=== PATIENT | male | born 1975 | race Caucasian/White ===

== ENCOUNTER 2023-04-19 10:59 | Outpatient (REF) | payer MEDICAID, SELFPAY ==
[2023-04-19 14:02] LABS: Alanine Aminotransferase 28 U/L (0-40); Albumin Level 4.7 g/dL (3.5-5.0); Alkaline Phosphatase 60 U/L (39-117); Anion Gap 14 (12-20); Aspartate Amino Transferase 25 U/L (5-37); Bilirubin Direct 0.4 mg/dL (0.0-0.5); Bilirubin Total 1.1 mg/dL (0.0-1.0); Blood Urea Nitrogen 16 mg/dL (9-16); Calcium 9.9 mg/dL (8.4-10.2); Carbon Dioxide 30 mmol/L (22-29); Chloride 99 mmol/L (96-108); Cholesterol 175 mg/dL (<200); Estimated Glomerular Filt Rate > 60; Glucose Random 86 mg/dL (60-115); HDL Cholesterol 29 mg/dL (>40); LDL Cholesterol Calculated 121 mg/dL (<100); Potassium 3.5 mmol/L (3.3-5.1); Sodium 139 mmol/L (135-145); Total Protein 8.4 g/dL (6.5-8.0); Triglycerides 127 mg/dL (<150)
== END 2023-04-19 11:00 | disposition home or self-care (01) ==
LOC: HO.HHCL 10:59
PROVIDERS: Visit Provider Student in an Organized Health Care Education/Training Program
DX: Z13.6 Encounter for screening for cardiovascular disorders (principal); J06.9 Acute upper respiratory infection, unspecified
CPT/HCPCS: 36415; 80048; 80061; 80076

== ENCOUNTER 2023-06-23 14:59 | Outpatient (REF) | payer MEDICAID, SELFPAY ==
[2023-06-23 18:03] LABS: MANUAL DIFF FLAG NO
[2023-06-23 18:09] LABS: Basophils Absolute Auto 0.1 X10*3/uL (0.0-0.2); Basophils Percent Auto 0.7 % (0-2); Eosinophils Absolute Auto 0.1 X10*3/uL (0.0-0.4); Eosinophils Percent Auto 0.9 % (0-4); Hematocrit 43.5 % (42.0-52.0); Imm Gran Abs Auto 0.01 X10*3/uL (0.00-0.03); Imm Gran Pct Auto 0.1 % (0.0-0.4); Lymphocytes Absolute Auto 1.8 X10*3/uL (1.2-4.9); Lymphocytes Percent Auto 26.3 % (20-40); Mean Corpuscular HGB Conc 34.5 g/dl (31.0-36.0); Mean Corpuscular Hemoglobin 30.2 pg (27.0-33.0); Mean Corpuscular Volume 87.7 fL (80.0-98.0); Mean Platelet Volume 10.2 fL (9.4-12.4); Monocytes Absolute Auto 0.7 X10*3/uL (0.1-1.2); Monocytes Percent Auto 10.9 % (2-11); Neutrophils Absolute Auto 4.1 x10*3/uL (2.0-8.3); Neutrophils Percent Auto 61.1 % (45-73); Platelet Count 285 X10*3/uL (160-400); Red Blood Count 4.96 X10*6/uL (4.60-5.80); Red Cell Distribution Width 12.8 % (11.0-16.0); White Blood Count 6.7 X10*3/uL (4.8-10.8)
[2023-06-23 18:18] LABS: Alanine Aminotransferase 20 U/L (0-40); Albumin Level 4.4 g/dL (3.5-5.0); Alkaline Phosphatase 60 U/L (39-117); Anion Gap 12 (12-20); Aspartate Amino Transferase 19 U/L (5-37); Bilirubin Total 0.5 mg/dL (0.0-1.0); Blood Urea Nitrogen 13 mg/dL (9-16); Carbon Dioxide 26 mmol/L (22-29); Chloride 104 mmol/L (96-108); Estimated Glomerular Filt Rate > 60; Glucose Random 99 mg/dL (60-115); Potassium 3.4 mmol/L (3.3-5.1); Sodium 139 mmol/L (135-145); Total Protein 7.9 g/dL (6.5-8.0)
[2023-06-24 09:07] LABS: HBsAGNum1 0.25 S/CO (0.00-0.99); Hepatitis B Surface Antigen Negative (Negative)
[2023-06-24 09:10] LABS: HBS Num1 0.21 mIU/mL (0-7.99); HBc Num1 0.25 S/CO (0.00-0.79); HIV AB/AG Nonreactive (Nonreactive); HIV Num 1 0.04 S/CO (0.00-0.99); Hepatitis B Core Antibody Nonreactive (Nonreactive); ~HepC Num1 0.22 S/CO (0.00-0.79); ~Hepatitis B Surface Antibody NONREACTIVE (Nonreactive); ~Hepatitis C Antibody Nonreactive (Nonreactive)
== END 2023-06-23 15:00 | disposition home or self-care (01) ==
LOC: HO.CHCLDS 14:59
PROVIDERS: Visit Provider Family Medicine
DX: I10 Essential (primary) hypertension (principal); Z13.9 Encounter for screening, unspecified
CPT/HCPCS: 36415; 80053; 85025; 86704; 86706; 86803; 87340; 87389

== ENCOUNTER 2023-09-03 11:02 | Outpatient (REF) | payer MEDICAID, SELFPAY ==
--- NOTE | ~2023-09-03 | MR_ITS ---
EXAMINATION: MR CERVICAL SPINE WITHOUT CONTRAST CLINICAL INFORMATION: Right-sided neck pain and arm numbness and tingling COMPARISON: None available. TECHNIQUE: MRI of the cervical spine was obtained using routine sequences without contrast. FINDINGS: The visualized posterior fossa is unremarkable. Straightening of the normal cervical lordosis. No listhesis. No acute bone marrow abnormality. The vertebral body heights are preserved. Multilevel disc desiccation with moderate disc height loss at C7-T1. The visualized spinal cord is normal in caliber. No abnormal cord signal. C2-C3: Mild endplate spurring and bilateral facet arthrosis. No significant spinal canal or foraminal narrowing. C3-4: Disc osteophyte complex, bilateral uncovertebral hypertrophy, bilateral facet arthrosis. Severe right greater than left neural foraminal narrowing. No significant spinal canal stenosis. C4-5: Disc osteophyte complex, bilateral uncovertebral hypertrophy, bilateral facet arthrosis. Severe right and mild left neural foraminal narrowing. No significant spinal canal stenosis. C5-6: Disc osteophyte complex, bilateral uncovertebral hypertrophy, bilateral facet arthrosis. Severe bilateral neural foraminal narrowing. No significant spinal canal stenosis. C6-7: Disc osteophyte complexes superimposed left subarticular disc protrusion. There is severe stenosis of the left lateral recess without significant spinal canal stenosis. Severe left greater than right neural foraminal narrowing. C7-T1: Disc osteophyte complex, bilateral uncovertebral hypertrophy, bilateral facet arthrosis. Mild spinal canal stenosis. Severe bilateral neural foraminal narrowing. T1-T2: Diffuse disc bulge and bilateral facet arthrosis. Mild spinal canal stenosis. Severe bilateral neural foraminal narrowing. The paravertebral soft tissues are unremarkable. The imaged lung apices are clear. MR/MR cervical spine wo con IMPRESSION: At C6-C7, there is severe lateral recess stenosis related to a left subarticular disc protrusion. At C7-T1 and T1-T2, there is mild spinal canal stenosis and severe bilateral neural foraminal narrowing. At C4-C5, there is severe right and mild left neural foraminal narrowing. At C3-C4, there is severe right greater than left neural foraminal narrowing. Electronically signed by: Ira Fowler MD 10/03/2023 06:48 PM EDT
== END 2023-09-03 11:03 | disposition home or self-care (01) ==
LOC: HO.MRI 11:02
PROVIDERS: PCP Family Medicine; Visit Provider Internal Medicine
DX: M54.2 Cervicalgia (principal)
CPT/HCPCS: 72141

== ENCOUNTER 2023-09-06 07:39 | Outpatient (REF) | payer MEDICAID, SELFPAY ==
--- NOTE | ~2023-09-06 | XR_ITS ---
EXAMINATION: XR ELBOW, RIGHT CLINICAL INFORMATION: Right lateral elbow pain. COMPARISON: None available. TECHNIQUE: AP, lateral, and oblique views of the right elbow. FINDINGS: There is increased osseous density adjacent to the medial upper condyle. There is a small spur extending off the lateral upper condyle. Bone and joints are otherwise unremarkable. No effusion. No fracture. No degenerative change. XR/XR elbow RT min 3V IMPRESSION: 1. Increased osseous density adjacent to the medial epicondyle. This likely reflects spur/enthesophyte. 2. Small spur/enthesophyte extending off the lateral epicondyle.
== END 2023-09-06 07:40 | disposition home or self-care (01) ==
LOC: HO.XRAY 07:39
PROVIDERS: PCP Family Medicine; Visit Provider Family Medicine
DX: M25.521 Pain in right elbow (principal)
CPT/HCPCS: 73080

== ENCOUNTER 2023-10-12 14:16 | Outpatient (AMB) | payer MEDICAID, SELFPAY ==
--- NOTE | 2023-10-12 14:17 | A.OFFVIS_ITS ---
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 Patient reports that he has had ongoing pain of the right elbow for about 2 month, pain is felt on the lateral aspect of the elbow. 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 Patient reports that hel woke up and had a pinched nerve in the neck, the pain was radiating from the neck to the elbow. His neck has since improved but he continues to have pain of the elbow, and limited function of the right hand. He has numbness and tingling of the ulnar aspect of the forearm and the 3rd,4th and 5th digits. He reports that he has had previous neck issues and had previous MRI, he does have an appointment with Spine next week. He would like to avoid surgical intervention, we discussed possible referral to physiarty Allergies No Known Allergies Allergy (Verified 10/12/23 14:44) HPI HPI ACCOUNT ANALYST-Right elbow pain: Details: Patient is a 48-year-old male who presents for evaluation of right elbow pain, that shoots from the right side of the neck down through the shoulder and elbow all the way to the forearm wrist and hand. The patient reports that he also has numbness and tingling in the right ring and small fingers that is constant, daily, worse at night. The patient reports that he does have a history significant for some cervical spine issues, such as a herniated disc, and states that he does have an appointment with spine in 1-2 weeks for assessment of this. The patient reports that this pain and numbness has been ongoing for approximately 2 months. Patient also reports that he has limited function in his right hand due to this, and states that he is weaker and has limited range of motion. Patient Also reports that he does experience pain in both the medial and lateral epicondyles of the elbow with lifting or range of motion. No other acute complaints or concerns at this time. [facility] Social History (Updated 10/12/23 @ 14:45 by Gloria Nelson CMA) Current occupational status: unemployed Review of Systems Const All systems reviewed & are unremarkable except as noted in HPI and below Physical Exam Vital Signs: BMI result Body Mass Index 33.2 Extrem Other: Patient is alert, oriented, and in no acute distress. Neuro: Patient reports diminished sensation to the small finger, ring finger, and the ulnar aspect of the middle finger of the left hand No visual evidence of thenar or intrinsic wasting Patient is unable to adduct the right small finger fully Patient is not able to cross the right middle finger over the index finger Good APB muscle belly firing Vascular: Cap refill brisk Pain: Patient reports tenderness to palpation of both the medial and lateral epicondyles of the right elbow No tenderness to palpation about right hand or wrist ROM: With encouragement, the patient is able to make a closed fist and extend the digits of the right hand fully Patient is able to extend the right elbow to 0 degrees and flex to approximately 140 degrees without difficulty Skin: No lacerations or abrasions. General: No ecchymosis, erythema, or evidence of infection. Positive Cozen's test on the right Positive reverse Cozen's test on the right Psych: Appears grossly normal Affect normal Attitude cooperative Assessment & Plan Assessment & Plan (1) Lateral epicondylitis of right elbow: Code(s): M77.11 - Lateral epicondylitis, right elbow Category: Medical (2) Medial epicondylitis of right elbow: Code(s): M77.01 - Medial epicondylitis, right elbow Category: Medical (3) Numbness and tingling of right hand: Code(s): R20.0 - Anesthesia of skin; R20.2 - Paresthesia of skin Category: Medical Plan 1. numbness and tingling of the ulnar nerve distribution of the right hand Symptoms constant, daily, worse at night Patient does not have a nerve conduction study on file Therefore, patient is referred for a nerve conduction study to assess the health of the nerves of the right upper extremity, as well as to attempt to differentiate if the neuropathy is from the cubital tunnel or potentially higher in the cervical spine. Patient will follow-up in our office after nerve conduction study for results review and discussion of further treatment options Patient is amenable to this plan 2. Medial epicondylitis of right elbow 3. lateral epicondylitis of right elbow At this time, patient is referred to occupational therapy for treatment of both medial and lateral epicondylitis of the right elbow Patient is informed that if in approximately 8 weeks after starting occupational therapy, he notices no relief or worsening of symptoms, he should call to make another appointment with our office to discuss further treatment options, includ ing but not limited to injections Patient is amenable to this plan Patient will follow-up as needed with any acute concerns Orders: Orders NE nerve conduction velocity 10/12/23 R20.0 - Anesthesia of skin, R20.2 - Paresthesia of skin NE electromyogram (EMG) 10/12/23 R20.0 - Anesthesia of skin, R20.2 - Paresthesia of skin OT Evaluation and Treatment 10/12/23 M77.01 - Medial epicondylitis, right elbow, M77.11 - Lateral epicondylitis, right elbow Coding Level of Care Code New Pt Level 3 (02908) Diagnoses Lateral epicondylitis of right elbow M77.11 Medial epicondylitis of right elbow M77.01 Numbness and tingling of right hand R20.0; R20.2
[2023-10-12 14:46] VITALS: BMI 33.2
== END 2023-10-12 15:10 | disposition home or self-care (01) ==
PROVIDERS: PCP Family Medicine
DX: M77.11 Lateral epicondylitis, right elbow (principal); M77.01 Medial epicondylitis, right elbow; R20.0 Anesthesia of skin; R20.2 Paresthesia of skin
CPT/HCPCS: 99203

== ENCOUNTER → 2023-10-12 14:16 | Outpatient (BNVA) | payer MEDICAID, SELFPAY | PROVIDERS: PCP Family Medicine | DX: M77.11 Lateral epicondylitis, right elbow (principal); M77.01 Medial epicondylitis, right elbow; R20.0 Anesthesia of skin; R20.2 Paresthesia of skin | CPT/HCPCS: 99212 ==

== ENCOUNTER 2023-10-17 10:52 | Outpatient (AMB) | payer MEDICAID, SELFPAY ==
--- NOTE | 2023-10-17 11:19 | HO.SPINEOV ---
Intake Visit Reasons: Back pain Intake Note: Mr. Drew is here today c/o back pain. Hand Winder Required: No Allergies No Known Allergies Allergy (Verified 10/12/23 14:44) Assessment & Plan Assessment & Plan (1) Numbness and tingling of right hand: Code(s): R20.0 - Anesthesia of skin; R20.2 - Paresthesia of skin Category: Medical Plan Dear Dr Rae, Thank you for referring Mr Drew to our office today. He is a very nice 48-year-old gentleman who presents to the office today for evaluation of tingling and numbness from his elbow down into his medial forearm into his 4th and 5th digits with associated strength loss. His issues began about 2 months ago when he awoke 1 morning and had pain in his neck radiating down his arm. That eventually subsided, but what he has been left with is a tingling and numbness with strength loss as mentioned in the hand. Specifically grabbing things, holding heavy objects or opening a jar etc.. He underwent a cervical MRI showing multilevel degenerative changes at C6-7, C7-T1 with foraminal narrowing amongst other degenerative changes. A he did see Ralph AGOSTO in the hand center just last week and was diagnosed with possible epicondylitis. A nerve conduction test was ordered. He is seeing us today to consider if this could be something coming from the cervical spine. Currently he has no arm pain. The main symptom is the numbness in the hand strength loss. PMH: Hypertension, GERD with Gil's esophagitis but otherwise healthy, no previous surgeries. Social hx: He does not smoke cigarettes, but does smoke marijuana daily, occasionally uses alcohol Medications: Pantoprazole, baby aspirin, amlodipine, hydrochlorothiazide Allergies: None Physical exam: Sensory loss in an ulnar/C8 distribution of the right hand with 4-5 strength loss in the interosseous and lumbrical muscle groups on the right side. Strength in the rest of his right arm is 5/5. Reflexes are normal in the upper extremities. Gait is normal. Positive Tinel sign in the right elbow. Imaging review: Cervical MRI done at [facility] reveals multilevel degenerative disc disease, he has a moderate to large size left C6-7 disc herniation compressing the left C7 nerve root. He has bilateral neuroforaminal stenosis at C7-T1 compressing the bilateral C8 nerve roots. There other more mild degenerative changes seen on the MRI. Impression: 48 year old gentleman presents to the office today for evaluation of tingling and numbness from his elbow down into his medial forearm in his 4th and 5th digits. He also has associated weakness of his finger intrinsic muscle groups. Positive Tinel sign on his exam. His initial presentation was suggests a radiculopathy coming from the C8 nerve root given the amount of pain that he was in initially, but the pain has resolved and he is left with a numbness from the elbow down and the weakness of the hand. What we could be dealing with here is a nerve injury from the compression at the C8 nerve root in the foramen at C7-T1 versus an ulnar neuropathy/cubital tunnel syndrome. An EMG was ordered by the hand surgery team. That seems very appropriate for this situation and we will await the results to see if this is coming from his neck or if it has a peripheral nerve issue. The good news is that the hand weakness seems to be ever so slowly resolving on its own according to the patient but it is certainly not back to normal yet. Thank you for allowing us to care for your patient. The total time spent with this visit with this patient was 45 minutes reviewing history, physical exam, service imaging review, and implementation of treatment plan or further diagnostic testing Ben Bojorquez MD,PhD [facility] Coding Level of Care Code New Pt Level 4 (69180) Diagnoses Numbness and tingling of right hand R20.0; R20.2
== END 2023-10-17 12:10 | disposition home or self-care (01) ==
PROVIDERS: PCP Family Medicine; Referring Provider Family Medicine; Visit Provider Physician Assistant
DX: R20.0 Anesthesia of skin (principal); R20.2 Paresthesia of skin
CPT/HCPCS: 99204

== ENCOUNTER → 2023-10-17 10:52 | Outpatient (BNVA) | payer MEDICAID, SELFPAY | PROVIDERS: PCP Family Medicine; Visit Provider Physician Assistant | DX: R20.0 Anesthesia of skin (principal); R20.2 Paresthesia of skin | CPT/HCPCS: 99212 ==

== ENCOUNTER 2023-11-11 15:20 | Outpatient (REF) | payer MEDICAID, SELFPAY ==
--- NOTE | 2023-11-11 15:23 | EMG_ITS ---
Chief complaint: Woke up in August with right-sided neck pain radiating to elbow and hand, with numbness on 4th and 5th digits. Symptoms have improved since but continues to have weakness on right hand. Noted weakness of intrinsic hand muscles, specifically finger abduction. There is also atrophy of right FDI muscle. Reason for referral: Evaluate for ulnar neuropathy versus radiculopathy Referred by: Ralph AGOSTO Procedure done: Right upper extremity NCS/EMG Precautions and/or limitations: None The limb temperature was monitored continuously and remained between 32-36 degrees C during the performance of the NCS. Ulnar motor NCS was performed with moderate elbow flexion between 70-90 degrees, with across-elbow distance of 10 cm. Nerve Conduction Studies Anti Sensory Summary Table ?Stim Site NR Onset (ms) Norm Onset (ms) Peak (ms) Norm Peak (ms) O-P Amp (?V) Norm O-P Amp Site1 Site2 Delta-0 (ms) Dist (cm) Jeevan (m/s) Norm Jeevan (m/s) Right Median Anti Sensory (2nd Digit) Wrist ? 2.9 3.6 <3.6 11.6 >10 Wrist 2nd Digit 2.9 14.0 48 Right Radial Anti Sensory (Thumb) Forearm ? 0.9 1.8 <3.1 19.0 Forearm Thumb 0.9 0.0 Right Ulnar Anti Sensory (5th Digit) Wrist ? 0.9 2.8 <3.7 22.2 >15.0 Wrist 5th Digit 0.9 14.0 156 Motor Summary Table ?Stim Site NR Onset (ms) Norm Onset (ms) O-P Amp (mV) Norm O-P Amp iAmp (mV) Amp (1st) (%) Site1 Site2 Delta-0 (ms) Dist (cm) Jeevan (m/s) Norm Jeevan (m/s) Right Median Motor (Abd Poll Brev) Wrist ? 4.5 <3.9 3.4 >4.5 4.6 100.0 Elbow Wrist 4.5 24.5 54 >45 Elbow ? 9.0 3.3 4.6 97.1 Right Ulnar Motor (Abd Dig Minimi) Wrist ? 4.2 <3.0 0.5 >5 0.4 100.0 B Elbow Wrist 3.4 22.0 65 >45 B Elbow ? 7.6 0.5 0.4 100.0 A Elbow B Elbow 1.6 10.0 63 >45 A Elbow ? 9.2 0.5 0.5 100.0 EMG ?Side Muscle Nerve Root Ins Act Fibs Psw Amp Dur Poly Recrt Int Pat Comment Right 1stDorInt Ulnar C8-T1 Incr 1+ 1+ Nml Nml 0 Reduced Complete Right FlexCarRad Median C6-7 Nml Nml Nml Nml Nml 0 Nml Complete Right Biceps Musculocut C5-6 Nml Nml Nml Nml Nml 0 Nml Complete Right Triceps Radial C6-7-8 Nml Nml Nml Nml Nml 0 Reduced Complete Right Deltoid Axillary C5-6 Nml Nml Nml Nml Nml 0 Nml Complete Paraspinal EMG ?Side Muscle Nerve Root Ins Act Fibs Psw Comment Right Cervical Upper Rami Nml Nml Nml Right Cervical Mid Rami Nml Nml Nml Right Cervical Lower Rami Incr 1+ 1+ FINDINGS: Right median motor nerve showed prolonged distal latency, small amplitude and normal conduction velocity. Right ulnar motor nerve showed prolonged distal latency, very small amplitudes and normal conduction velocity. No conduction block across the elbow. Median and ulnar sensory nerves within normal. Radial sensory nerve within normal. Concentric needle EMG was performed in selected muscles of the right upper extremity and cervical paraspinals. Study revealed signs of electric abnormalities as shown in the table above. Right triceps showed reduced recruitment. Right FDI showed increased insertional activity, PSWs, fibrillations, and reduced recruitment. Right lower cervical paraspinals showed increased insertional activity, PSWs and fibrillations. IMPRESSION: 1. This is an abnormal study. 2. There is electrodiagnostic evidence for right C8 acute radiculopathy. 3. There is no electrodiagnostic evidence for median neuropathy, ulnar neuropathy, or brachial plexopathy. Thank you for your kind referral. Gissel Erwin MD, MARISSA Board Certified, [place] Board of Physical Medicine and Rehabilitation (ABPMR) Board Certified, [place] Board of Electrodiagnostic Medicine (ABEM) [place] [id number] [facility]
== END 2023-11-11 15:21 | disposition home or self-care (01) ==
LOC: HO.NEURO 15:20
PROVIDERS: PCP Family Medicine
DX: R20.0 Anesthesia of skin (principal); R20.2 Paresthesia of skin
CPT/HCPCS: 95886; 95909

== ENCOUNTER → 2023-11-11 15:23 | Outpatient (BNV) | payer MEDICAID, SELFPAY | PROVIDERS: PCP Family Medicine; Visit Provider Physical Medicine & Rehabilitation | DX: M54.12 Radiculopathy, cervical region (principal) | CPT/HCPCS: 95886; 95909 ==

== ENCOUNTER 2023-11-29 03:28 | Emergency (ER) | payer MEDICAID, SELFPAY ==
[2023-11-29 03:39] VITALS: BP 139/88; PULSE 63; RESP 16; TEMP 36.5; O2SAT 96; BMI 32.5
[2023-11-29 04:00] VITALS: BP 149/87; PULSE 65; RESP 20; TEMP 36.3; O2SAT 96
[2023-11-29] MEDS: Ibuprofen 600 MG TABLET PO (04:43)
[2023-11-29 06:20] VITALS: BP 138/80; PULSE 60; RESP 17; TEMP 37; O2SAT 95
--- NOTE | 2023-11-29 06:56 | ED.DENTAL ---
HPI - Dental/Oral General Chief complaint: Dental/Oral Stated complaint: SOB, mouth infection Time Seen by Provider: 11/29/23 06:31 Source: patient Mode of arrival: ambulatory Limitations: no limitations History of Present Illness ED Provider: Reny Damon PA-C HPI Narrative: 48 yo male presents to the ER for evaluation of front lower dental pain and swelling that started 2-3 days ago. He reports a history of multiple extractions in the past and has upper dentures. He has an appointment on 12/12 to remove what is left of the lower teeth. He reports one of his front lower left teeth is broken and it started getting very painful and swollen 2-3 days ago. Pain with chewing, hot and cold. Minimal relief w/ tyelnol. no neck swelling. no fevers. MD Complaint: tooth pain Location: Tooth # (27) Onset (ago): day(s) Duration: constant Severity: severe Relieving factors: NSAIDs Exacerbating factors: chewing, cold and heat Context: history of dental caries and poor dental care Associated symptoms: gum swelling Treatment prior to arrival: oral analgesic Related Data Home Medications ?Medication ?Instructions ?Recorded ?Confirmed amlodipine 10 mg tablet 10 mg PO QAM 10/12/23 aspirin 81 mg tablet,delayed 81 mg PO QAM 10/12/23 release hydrochlorothiazide 25 mg tablet 25 mg PO QAM 10/12/23 pantoprazole 20 mg tablet,delayed 20 mg PO QAM 10/12/23 release Previous Rx's ?Medication ?Instructions ?Recorded amoxicillin 875 mg-potassium 1 tab PO BID #20 tabs 11/29/23 clavulanate 125 mg tablet chlorhexidine gluconate 0.12 % 15 ml buccal BID #473 mL 11/29/23 mouthwash (Peridex) ibuprofen 600 mg tablet 600 mg PO Q8H PRN fever or pain 11/29/23 #14 tabs tramadol 50 mg tablet 50 mg PO Q8H PRN severe pain 11/29/23 (scale score 7-10) #6 tabs Allergies Allergy/AdvReac Type Severity Reaction Status Date / Time No Known Allergies Allergy Verified 11/29/23 03:40 Review of Systems Review of Systems: Yes all other systems are reviewed and are negative PMFSH Social History Social History (Updated 10/12/23 @ 14:45 by Gloria Nelson [facility]) Smoked in Last 30 Days: No Substance Use Type: Marijuana Advance Directives: No Advance Directives Information Provided: No Do you have a plan to hurt others: No Plan Current occupational status: unemployed Physical Exam Vital Signs: Vital Signs: Last Vital Signs Temp 98.7 F 11/29/23 07:14 Pulse 60 11/29/23 07:14 Resp 17 11/29/23 07:14 BP 138/80 11/29/23 07:14 Pulse Ox 95 11/29/23 07:14 O2 Del Method Room Air 11/29/23 06:20 BMI result Body Mass Index 32.5 Appearance: Alert. Oriented X3. No acute distress. Head: normocephalic, atraumatic. Eyes: Pupils equal, round and reactive to light. ENT: Pharynx normal. No tonsillar swelling or exudate. Dental: upper dentures in place. lower molars missing bilaterally with normal appearing gingiva. left lower incisor is broken, tender w/ associated gingival erythema, tenderness and swelling. no fluctuance. no trismus Neck: Normal inspection. Neck supple. No anterior neck swelling CVS: Normal heart rate and rhythm. Pulses normal. Respiratory: No respiratory distress. Breath sounds normal. Abdomen: Soft and nontender. +BS x4 Skin: Skin warm and dry. Normal skin color. Normal skin turgor. No rashes. Extremities: No lower extremity edema. No joint swelling. Neuro/psych: Oriented X 3. grossly normal, nonfocal. CN II-XII intact. Normal speech and cognition. Medications Administered Discontinued Medications Generic Name Dose Route Start Last Admin Trade Name Freq PRN Reason Stop Dose Admin Amoxicillin/Clavulanate Potassium 875 mg 11/29/23 06:54 11/29/23 07:11 Amoxicillin/Potassium Clav 875 Mg Tablet PO 11/29/23 06:55 875 mg ONCE ONE Administration Ibuprofen 600 mg 11/29/23 04:41 11/29/23 04:43 Ibuprofen 600 Mg Tablet PO 11/29/23 04:42 600 mg ONCE ONE Administration Medical Decision Making Medical Decision Making [facility] Narrative: 40-year-old male presents to the ER for evaluation of lower, frontal dental pain and swelling. He has a broken tooth that is infected. It appears he has an abscess. There is no drainable window, area of fluctuance to intervene on today. Will start him on antibiotics and pain control. He has a dentist appointment in a week and a half. Was given strict return precautions and is stable for [place] home Differential Diagnosis Differential Diagnoses: The differential diagnosis associated with the presentation includes toothache, dental trauma, dental absess, bryce's angina External Record Review External record reviewed: Prior outpatient labs Tests considered The following testing was considered but not selected: Considered CT scan of the facial bones/soft tissues of the neck to assess for involvement in the submental tissues however this was not present on examination today Prescription Management I considered prescription management with: Pain Medication and Antibiotic Critical Care Time Critical Care Time Critical Care Time: No Discharge Plan Discharge Clinical Impression: Dental abscess Patient Disposition: Home, Self-Care Instructions: Dental Abscess (ED) Additional Instructions: Take the prescribed antibiotics as directed, complete the entire course and do not miss any doses Take Tylenol 1000 mg every 6 hours alternating with Ibuprofen (take with food) Take the presribed tramadol as needed for severe pain only. do not drive after taking this medication Follow up with your dentist as soon as possible. If you develop new or worsening symptoms call 911 or come back to the ER for further evaluation. Prescriptions: New amoxicillin-pot clavulanate 875-125 mg tablet 1 tab PO BID Qty: 20 0RF ibuprofen 600 mg tablet 600 mg PO Q8H PRN (Reason: fever or pain) Qty: 14 0RF tramadol 50 mg tablet 50 mg PO Q8H PRN (Reason: severe pain (scale score 7-10)) Qty: 6 0RF chlorhexidine gluconate [Peridex] 0.12 % mouthwash 15 ml buccal BID Qty: 473 0RF No Action hydrochlorothiazide 25 mg tablet 25 mg PO QAM amlodipine 10 mg tablet 10 mg PO QAM pantoprazole 20 mg tablet,delayed release (DR/EC) 20 mg PO QAM aspirin 81 mg tablet,delayed release (DR/EC) 81 mg PO QAM Referrals: Quynh Rae MD [Primary Care Provider] - Interventions: ED Discharge Assessment Last Done: 11/29/23 07:14 Discharge Date/Time: 11/29/23 07:15 Print Language: Italian
[2023-11-29] MEDS: Amoxicillin/Potassium Clav 875 MG TABLET PO (07:11)
[2023-11-29 07:14] VITALS: BP 138/80; PULSE 60; RESP 17; TEMP 37.1; O2SAT 95
== END 2023-11-29 07:15 | disposition home or self-care (01) ==
PROVIDERS: Emergency Provider Emergency Medicine; PCP Family Medicine
DX: K04.7 Periapical abscess without sinus (principal); R06.02 Shortness of breath; K03.81 Cracked tooth
CPT/HCPCS: 99283; 99284

== ENCOUNTER 2023-12-05 15:12 | Outpatient (AMB) | payer MEDICAID, SELFPAY ==
--- NOTE | 2023-12-05 15:15 | MHC.OFFVIS ---
Vital Signs 12/05/23 15:17 Height 6 ft 1 in Weight 240 lb BMI 31.7 Handedness Right Intake Visit Reasons: OV - EMG review Intake Note: Raul is a 48 year old right hand dominant male who presents today for a review of his EMG for his right upper extremity conducted on 11/11/2023. Patient is open to discussing treatment options. Allergies No Known Allergies Allergy (Verified 12/05/23 15:17) HPI HPI OV - EMG review: Details: Patient is a 48-year-old male who presents for right hand EMG review. The patient states that his symptoms have improved significantly since previous evaluation, and then he feels that the strength is returning to his right hand, as well as decreases in the intensity and frequency of the numbness and tingling of the right hand. Patient does state however that he is still open to any potential treatment options available to him. No other acute complaints or concerns at this time. [facility] Social History Alcohol intake: current Alcohol intake frequency: holidays/special occasions only e-Cigarette/Vaping Use: Currently Using Substance Use Type: Marijuana Current occupational status: unemployed Physical Exam Vital Signs: BMI result Body Mass Index 31.7 Extrem Other: Patient is alert, oriented, and in no acute distress. Neuro: Patient reports diminished sensation to the small finger, ring finger, and the ulnar aspect of the middle finger of the left hand No visual evidence of thenar or intrinsic wasting Patient is unable to adduct the right small finger fully, but improved since last visit Patient is not able to cross the right middle finger over the index finger Good APB muscle belly firing Vascular: Cap refill brisk Pain: Patient reports tenderness to palpation of both the medial and lateral epicondyles of the right elbow No tenderness to palpation about right hand or wrist ROM: With encouragement, the patient is able to make a closed fist and extend the digits of the right hand fully Patient is able to extend the right elbow to 0 degrees and flex to approximately 140 degrees without difficulty Skin: No lacerations or abrasions. Psych: Appears grossly normal Affect normal Attitude cooperative Results Reviewed Results Reviewed: MPRESSION: 1. This is an abnormal study. 2. There is electrodiagnostic evidence for right C8 acute radiculopathy. 3. There is no electrodiagnostic evidence for median neuropathy, ulnar neuropathy, or brachial plexopathy. Thank you for your kind referral. Gissel Erwin MD, MARISSA Assessment & Plan Assessment & Plan (1) Cervical radiculopathy at C8: Code(s): M54.12 - Radiculopathy, cervical region Category: Medical Plan 1. 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
[2023-12-05 15:17] VITALS: BMI 31.7
== END 2023-12-05 15:37 | disposition home or self-care (01) ==
LOC: HO.HOS 15:12
PROVIDERS: PCP Family Medicine
DX: M54.12 Radiculopathy, cervical region (principal)
CPT/HCPCS: 99213

== ENCOUNTER → 2023-12-05 15:12 | Outpatient (BNVA) | payer MEDICAID, SELFPAY | PROVIDERS: PCP Family Medicine | DX: M54.12 Radiculopathy, cervical region (principal) | CPT/HCPCS: 99212 ==

== ENCOUNTER 2023-12-08 14:56 | Outpatient (AMB) | payer MEDICAID, SELFPAY ==
--- NOTE | 2023-12-08 15:35 | A.SPINEOV_ITS ---
Intake Visit Reasons: pt had EMG 11/10 and will like to review with you Intake Note: Mr. Drew is here to F/u on EMG results. Branch Service Representative Required: No Allergies No Known Allergies Allergy (Verified 12/05/23 15:17) Assessment & Plan Assessment & Plan (1) Cervical radiculopathy at C8: Code(s): M54.12 - Radiculopathy, cervical region Category: Medical Plan Mr Drew came back in today to discuss his EMG. His pain in his arm is gone, the numbness seems to be going away as well however the hand weakness remains. His EMG showed a C8 radiculopathy which we expected. It does not show cubital tunnel syndrome. We discussed the fact that with or without surgery, the hand weakness is likely something that is going to be present for some time it may even be permanent, therefore Dr. Bojorquez generally does not elected to do surgery on these patients. I gave him a referral to OT so they could work with him. He will contact us down the road if something changes. Total amount of time spent in this visit was 20 minutes in discussion of symptoms, EMG results and subsequent plan of care Ben Bojorquez MD,PhD [facility] Orders: Orders OT Evaluation and Treatment Today M54.12 - Radiculopathy, cervical region Coding Level of Care Code Est Pt Level 3 (41487) Diagnoses Cervical radiculopathy at C8 M54.12
== END 2023-12-08 15:58 | disposition home or self-care (01) ==
LOC: HO.HNS 14:56
PROVIDERS: PCP Family Medicine; Visit Provider Physician Assistant
DX: M54.12 Radiculopathy, cervical region (principal)
CPT/HCPCS: 99213

== ENCOUNTER → 2023-12-08 14:56 | Outpatient (BNVA) | payer MEDICAID, SELFPAY | PROVIDERS: PCP Family Medicine; Visit Provider Physician Assistant | DX: M54.12 Radiculopathy, cervical region (principal) | CPT/HCPCS: 99212 ==

== ENCOUNTER 2024-12-10 09:36 | Outpatient (REF) | payer MEDICAID, SELFPAY ==
--- OUTSIDE RECORDS SUMMARY | 2024-12-10 11:00 | XMS_ITS | Patient Health Record ---
Author Organization [facility] Address [address] [place] [address] Care Team Providers Care Regulatory Submissions Associate Name Role Phone LEVON VAUGHN, DR RIVAS Primary Care Provider Margarita Concepcion Unavailable [phone] NO REFERRING, PROVIDER Unavailable Unavailab le Allergies No Known Allergies Reason For Referral No Information Medications Medication SIG (Take, Route, Frequency, Duration) Notes Start Date End Date Status Dicyclomine HCl 10 MG Capsule 1 capsule before meals Orally Three times a day; Duration: 30 days 10/15/2020 Active Vitamin D3 50 MCG (1999 UT) Capsule 3 capsule daily Orally Once a day; Duration: 90 days 06/01/2021 Active Golytely 236 GM Solution Reconstituted 1 gallon Orally once; Duration: 1 dose 05/07/2022 Active Pantoprazole Sodium 20 MG Tablet Delayed Release 1 tablet Orally once daily 30 minutes before breakfast; Duration: 90 days Active Social History Tobacco Use: Social History Observation Description Date Details (start date - stop date) Never Smoker NA - NA Social History Social History Social Info Question Answer Notes Alcohol Use Did you have a drink containing alcohol i n the past year? Yes How often did you have a drink containing alcohol in the past year? Two to four times a month (2 points) Points 2 Interpretation Negative Smoking Are you a: never smoker Additional Details Category Social Info Options Details Social History Alcohol Yes Tobacco Use No Problems Problem Type SNOMED Code ICD Code Onset Dates Problem Status W/U Status Risk Notes Problem History of polyp of colon (situation) (748458918) History of colon polyps (Z86.010) Active confirmed Colonoscopy 04/2022: Seven subcentimeter Tubular adenomas. Next colonoscopy due in 05/2023 Problem Hematochezia (844779319) Hematochezia (K92.1) Active confirmed 1 self-limited episode last week. Suspect this may have been from an internal hemorrhoid. Problem History of polyp of colon (situation) (143947586) Personal history of colonic polyps (Z86.010) Active confirmed last colonoscopy 2017 with hyperplastic polyps. Recommended repeat surveillance colonoscopy in 2021. He is overdue now. Problem Epigastric pain (27848720) Epigastric pain (R10.13) Active confirmed Problem Gil's esophagus (034310705) Gil's esophagus without dysplasia (K22.70) Active confirmed compliant on pantoprazole 20 mg once daily. No smoking. Due for surveillance EGD in 2025. Problem Helicobacter pylori infection (841491032) Helicobacter pylori infection (A04.8) Active confirmed Problem History of psychiatric disorder (439691671) History of panic attacks (Z86.59) Active confirmed Problem Gastroesophageal reflux disease (853208484) Gastroesophageal reflux disease, unspecified whether esophagitis present (K21.9) Active confirmed Plan Of Treatment No Information Insurance Providers Payer Name Payer Address Payer Phone Subscriber Number Group Number Insured Name Patient Relationship to Insured Coverage Start Date Coverage End Date [employer] [place] ([place]) ([facility] [employer]) [address] [place] [address] [id number] DEZ SUNSHINE Self - patient is the insured Medical (General) History Surgical History Surgery Date(Month/Year) Hospitalization History Reason Date(Month/Year) No hospitalization in the last year 2020
[2024-12-10 11:51] LABS: MANUAL DIFF FLAG NO
[2024-12-10 11:53] LABS: Hematocrit 48.6 % (42.0-52.0); Hemoglobin 16.6 g/dl (14.0-18.0); Imm Gran Abs Auto 0.02 X10*3/uL (0.00-0.03); Imm Gran Pct Auto 0.3 % (0.0-0.4); Lymphocytes Absolute Auto 2.4 X10*3/uL (1.2-4.9); Mean Corpuscular HGB Conc 34.2 g/dl (31.0-36.0); Mean Corpuscular Hemoglobin 29.9 pg (27.0-33.0); Mean Corpuscular Volume 87.4 fL (80.0-98.0); NRBC Abs Auto 0.000 X10*3/uL (0.0-0.012); NRBC Pct Auto 0.0 /100WBC (0.0-0.2); Platelet Count 278 X10*3/uL (160-400); Red Blood Count 5.56 X10*6/uL (4.60-5.80); White Blood Count 6.6 X10*3/uL (4.8-10.8)
[2024-12-10 12:17] LABS: Microalbum/Creatinine Ratio Ur 4.6 ug/mg cr (<30)
[2024-12-10 12:28] LABS: Alanine Aminotransferase 31 U/L (0-40); Albumin Level 4.9 g/dL (3.5-5.0); Alkaline Phosphatase 51 U/L (39-117); Anion Gap 9 (12-20); Aspartate Amino Transferase 28 U/L (5-37); Blood Urea Nitrogen 15 mg/dL (9-16); Calcium 9.5 mg/dL (8.4-10.2); Carbon Dioxide 31 mmol/L (22-29); Chloride 106 mmol/L (96-108); Cholesterol 229 mg/dL (<200); Estimated Glomerular Filt Rate > 60; HDL Cholesterol 41 mg/dL (>40); Magnesium 2.4 mg/dL (1.6-2.6); Potassium 3.6 mmol/L (3.3-5.1); Sodium 142 mmol/L (135-145); Total Protein 8.1 g/dL (6.5-8.0); Triglycerides 188 mg/dL (<150)
[2024-12-10 12:31] LABS: HBS Num1 0.00 mIU/mL (0-7.99); HBc Num1 0.10 S/CO (0.00-0.79); HBsAGNum1 0.29 S/CO (0.00-0.99); Hepatitis B Surface Antigen Negative (Negative); ~Hepatitis B Surface Antibody NONREACTIVE (Nonreactive)
[2024-12-10 12:47] LABS: Folate 5.7 ng/mL (> or = 4.0); Vitamin B12 304 pg/mL (200-900)
== END 2024-12-10 09:37 | disposition home or self-care (01) ==
LOC: HO.HHCL 09:36
PROVIDERS: PCP Family Medicine; Visit Provider Family Medicine
DX: Z11.59 Encounter for screening for other viral diseases (principal); Z13.89 Encounter for screening for other disorder; E66.9 Obesity, unspecified; I10 Essential (primary) hypertension
CPT/HCPCS: 36415; 80053; 80061; 82043; 82570; 82607; 82746; 83735; 84443; 85025; 86704; 86706; 87340